=== PATIENT | female | born 1995 | race Hispanic/Latino ===

== ENCOUNTER 2022-01-28 12:18 | Outpatient (CLI) | payer OTHER | END 2022-01-28 12:19 | disposition home or self-care (01) | LOC: CSHULT 12:18 | PROVIDERS: ATTEND Family Medicine | DX: Z34.02 Encounter for supervision of normal first pregnancy, second trimester (principal); Z3A.21 21 weeks gestation of pregnancy | CPT/HCPCS: 76805 ==

== ENCOUNTER 2022-06-08 04:31 | Inpatient (IN) | payer OTHER ==
[2022-06-08 04:57] VITALS: BMI 35.2
[2022-06-08] MEDS ORDERED: Acetaminophen 500 MG TAB PO PRN (05:22)
[2022-06-08] MEDS ORDERED: Ibuprofen 800 MG TAB PO PRN (05:22)
[2022-06-08] MEDS ORDERED: Carboprost 250 MCG/ML AMP IM PRN (05:22)
[2022-06-08] MEDS ORDERED: Promethazine HCl 25 MG/ML VIAL IM PRN ×3 (05:22→21:19)
[2022-06-08] MEDS ORDERED: Lidocaine 1% (PF) 30 ML VIAL SC PRN (05:22)
[2022-06-08] MEDS ORDERED: Ondansetron PF 4 MG/2 ML Vial IVP PRN ×3 (05:22→21:19)
[2022-06-08] MEDS ORDERED: Butorphanol Tartrate 1 MG/ML VIAL SLOW IVP PRN (05:22)
[2022-06-08] MEDS ORDERED: Misoprostol 200 MCG TAB PR PRN (05:22)
[2022-06-08] MEDS ORDERED: hydrALAZINE 20 MG/ML VIAL SLOW IVP PRN (05:22)
[2022-06-08] MEDS ORDERED: Methylergonovine 0.2 MG/ML VIAL IM PRN (05:22)
[2022-06-08] MEDS ORDERED: Penicillin G Potassium 5 MILL.UNITS in Sodium Chloride 0.9% 100 ML IVPB SCH (05:30)
[2022-06-08] MEDS ORDERED: NS w/ Oxytocin 30 units 500 ML IV SCH ×2 (05:30)
[2022-06-08] MEDS: Lactated Ringer's 1,000 ML IV SCH ×3 (05:41→13:33)
[2022-06-08 05:59] LABS: Hemoglobin 11.5 g/dL (12.0-15.5); Mean Corpuscular HGB CONC 32.8 g/dL (32.0-36.0); Mean Corpuscular Hemoglobin 26.7 pg (27.0-33.0); Mean Corpuscular Volume 81.6 fl (81.6-98.3); Mean Platelet Volume 10.5 fl (7.4-10.4); Platelet Count 270 10x3/uL (150-450); RBC Distribution Width 13.8 % (11.5-14.5); White Blood Cell (WBC) Count 10.6 10x3/uL (3.5-10.5)
[2022-06-08 06:29] LABS: Syphilis Antibody Nonreactive (Nonreactive); Syphilis Antibody Index 0.05 S/CO (<1.00 Non-Reactive)
[2022-06-08 06:31] LABS: HBSAg Index 0.19 S/CO (0-0.99); Hep B Surf Ag Non-Reactive S/CO (NonReactive)
[2022-06-08] MEDS ORDERED: Fentanyl 2 mcg/Bup 0.1% Cadd 100 ML ONE (07:43)
[2022-06-08] MEDS: Fentanyl 2 mcg/Bupivacaine 0.1% Cassette 100 ML EPIDURAL SCH ×2 (08:30→16:20)
[2022-06-08] MEDS ORDERED: Naloxone HCl 0.4 mg/ml Vial IVP PRN ×4 (08:35→21:19)
[2022-06-08] MEDS ORDERED: Lactated Ringer's 500 ML IV PRN (08:35)
[2022-06-08] MEDS ORDERED: Acetaminophen 325 MG TAB PO PRN (08:35)
[2022-06-08] MEDS ORDERED: Moisturizing Cream (Eucerin) 113 GM JAR TOP PRN ×2 (08:35→21:19)
[2022-06-08] MEDS ORDERED: ePHEDrine Sulfate 50 MG/10 ML VIAL SLOW IVP PRN (08:35)
[2022-06-08] MEDS ORDERED: diphenhydrAMINE 50 MG/ML VIAL IVP PRN ×2 (08:35→21:19)
[2022-06-08] MEDS ORDERED: Communication Order-Pharmacy FS SCH ×2 (08:45→21:30)
[2022-06-08] MEDS: Penicillin G 2.5 MILL.units 2.5 MILL.UNITS in Premix Bag 1 BAG IVPB SCH ×3 (09:48→17:21)
[2022-06-08] MEDS ORDERED: Dexmedetomidine 200 MCG/2 ML VIAL ONE (11:56)
[2022-06-08] MEDS ORDERED: Lidocaine 2% MPF 10 ML AMP (For Epidural Use) ONE (14:29)
[2022-06-08] MEDS ORDERED: Bupivacaine/Epinephrine 0.25% 30 ML VIAL ONE (14:29)
[2022-06-08] MEDS ORDERED: Bupivacaine HCl 0.5%/Epinephrine 1:200,000/PF 30 ml Vial ONE (14:29)
[2022-06-08] MEDS ORDERED: Bupivacaine 0.5% 10 ML VIAL ONE (14:29)
[2022-06-08] MEDS ORDERED: CEFAZOLIN 2 GM VIAL ONE (19:55)
[2022-06-08] MEDS ORDERED: Azithromycin 500 MG VIAL ONE (19:55)
[2022-06-08] MEDS ORDERED: Morphine PF 10 MG/10 ML VIAL ONE (20:15)
[2022-06-08] MEDS ORDERED: Fentanyl 100 MCG/2 ML VIAL ONE (20:15)
[2022-06-08] MEDS ORDERED: Oxytocin 10 UNITS/ML VIAL ONE ×2 (20:25→21:06)
[2022-06-08] MEDS ORDERED: Ondansetron PF 4 MG/2 ML Vial ONE (20:25)
[2022-06-08] MEDS ORDERED: Dexamethasone 4 mg/ml Vial ONE (20:25)
[2022-06-08] MEDS ORDERED: Naloxone HCl 0.4 mg/ml Vial IV PRN (21:19)
[2022-06-08] MEDS ORDERED: Ketorolac Tromethamine 30 MG/ML VIAL IVP PRN (21:19)
[2022-06-08] MEDS ORDERED: Promethazine HCl 25 MG SUPP PR PRN (21:19)
[2022-06-08] MEDS ORDERED: Fentanyl 100 MCG/2 ML VIAL SLOW IVP PRN (21:20)
[2022-06-08] MEDS ORDERED: Meperidine HCl/PF 25 MG/ML VIAL SLOW IVP PRN (21:20)
[2022-06-08] MEDS ORDERED: HYDROmorphone 2 MG/ML VIAL SLOW IVP PRN (21:20)
[2022-06-08] MEDS ORDERED: Ondansetron HCl/PF 4 MG/2 ML Vial IVP PRN (21:20)
[2022-06-08] MEDS ORDERED: Ketorolac Tromethamine 30 MG/ML VIAL IVP SCH (21:30)
[2022-06-09] MEDS ORDERED: Ondansetron PF 4 MG/2 ML Vial IVP PRN (01:29)
[2022-06-09] MEDS ORDERED: hydrALAZINE 20 MG/ML VIAL SLOW IVP PRN (01:29)
[2022-06-09] MEDS ORDERED: Bisacodyl 10 MG SUPP PR PRN (01:29)
[2022-06-09] MEDS ORDERED: Promethazine HCl 25 MG/ML VIAL IM PRN (01:29)
[2022-06-09] MEDS ORDERED: diphenhydrAMINE 25 MG CAP PO PRN (01:29)
[2022-06-09] MEDS ORDERED: Boostrix 0.5 ML (Tdap) VIAL (>/=7 yrs of age) IM ONE (01:29)
[2022-06-09] MEDS ORDERED: Simethicone Chewable 80 MG TAB PO PRN (01:29)
[2022-06-09] MEDS ORDERED: Lanolin Ointment 7 GM TUBE TOP PRN (01:29)
[2022-06-09] MEDS: Ketorolac Tromethamine 30 MG/ML VIAL IVP SCH ×3 (03:01→14:33)
[2022-06-09 04:22] LABS: Hemoglobin 11.2 g/dL (12.0-15.5); Mean Corpuscular Volume 81.7 fl (81.6-98.3); Mean Platelet Volume 10.7 fl (7.4-10.4); Platelet Count 267 10x3/uL (150-450); Red Blood Cell (RBC) Count 4.15 10x6/uL (3.90-5.03); White Blood Cell (WBC) Count 21.8 10x3/uL (3.5-10.5)
[2022-06-09] MEDS: Docusate 100 MG CAP PO SCH ×2 (08:47→21:06)
[2022-06-09] MEDS: Prenatal Vitamin 1 TAB PO SCH (08:47)
[2022-06-09] MEDS: Ferrous Sulfate 325 MG TAB PO SCH ×2 (08:47→21:04)
[2022-06-09] MEDS: Lactated Ringer's 1,000 ML IV SCH (08:49)
[2022-06-09] MEDS ORDERED: Meperidine HCl/PF 25 MG/ML VIAL IM PRN (09:30)
[2022-06-09] MEDS: Penicillin G 2.5 MILL.units 2.5 MILL.UNITS in Premix Bag 1 BAG IVPB SCH (12:37)
[2022-06-09] MEDS: HYDROcodone/Acetaminophen 5/325 mg Tablet PO PRN ×3 (12:51→17:54)
[2022-06-09] MEDS: Ibuprofen 800 MG TAB PO SCH (21:06)
[2022-06-10] MEDS: HYDROcodone/Acetaminophen 5/325 mg Tablet PO PRN ×3 (02:31→21:32)
[2022-06-10] MEDS: Ibuprofen 800 MG TAB PO SCH ×3 (05:38→21:34)
[2022-06-10] MEDS: Ferrous Sulfate 325 MG TAB PO SCH ×2 (09:17→19:36)
[2022-06-10] MEDS: Prenatal Vitamin 1 TAB PO SCH (09:42)
[2022-06-10] MEDS: Docusate 100 MG CAP PO SCH ×2 (09:42→21:34)
[2022-06-11] MEDS: Ibuprofen 800 MG TAB PO SCH ×2 (05:04→13:42)
[2022-06-11] MEDS: HYDROcodone/Acetaminophen 5/325 mg Tablet PO PRN ×2 (05:05→11:37)
[2022-06-11] MEDS: Docusate 100 MG CAP PO SCH (09:10)
[2022-06-11] MEDS: Prenatal Vitamin 1 TAB PO SCH (09:10)
[2022-06-11] MEDS: Ferrous Sulfate 325 MG TAB PO SCH (10:20)
[2022-06-11 11:38] VITALS: BP 116/59; TEMP 98.2
== END 2022-06-11 15:15 | disposition home or self-care (01) | DRG 788 ==
LOC: CSHLD/OP 04:31 → CSHLD 06:54 → CSHPP 06-09 00:10
PROVIDERS: ADMIT Family Medicine; ATTEND Family Medicine
PROC: 10D00Z1 Extraction of Products of Conception, Low, Open Approach (ICD-10-PCS; principal; 2022-06-08)
DX: O42.02 Full-term premature rupture of membranes, onset of labor within 24 hours of rupture (principal); O62.1 Secondary uterine inertia; Z3A.39 39 weeks gestation of pregnancy; Z37.0 Single live birth; O99.824 Streptococcus B carrier state complicating childbirth; Z79.899 Other long term (current) drug therapy
CPT/HCPCS: 36415; 51702; 85027; 86780; 86850; 86900; 86901; 87340; 99285; J1100; J1885; J2210; J2274; J2405; J2540; J2590; J3010; J3490; J7120; U0003; U0005

== ENCOUNTER 2024-11-23 22:58 | Day surgery (SDC) | payer OTHER, SELFPAY ==
[2024-11-23 23:09] VITALS: BMI 34.9
[2024-11-24] MEDS: Acetaminophen 500 MG TAB PO PRN (00:55)
[2024-11-24 01:41] LABS: Protein, Urine Random Quant 285.0 mg/dL (1-14)
== END 2024-11-24 09:25 | disposition home or self-care (01) ==
LOC: CSHLD/OP 22:58
PROVIDERS: ATTEND Family Medicine
DX: O12.03 Gestational edema, third trimester (principal); O26.813 Pregnancy related exhaustion and fatigue, third trimester; Z3A.33 33 weeks gestation of pregnancy; Z87.59 Personal history of other complications of pregnancy, childbirth and the puerperium; Z79.899 Other long term (current) drug therapy
CPT/HCPCS: 82570; 84156; 99285

== ENCOUNTER 2024-11-27 16:24 | Day surgery (SDC) | payer OTHER ==
[2024-11-27 16:48] VITALS: BMI 34.9
[2024-11-27] MEDS ORDERED: hydrALAZINE 20 MG/ML VIAL SLOW IVP PRN (16:58)
[2024-11-27 17:33] LABS: Fetal Membranes Rupture No Membranes Rupture (No Rupture)
[2024-11-27 17:34] LABS: #Basophils 0.03 10x3/uL (0.0-0.2); #Eosinophils 0.04 10x3/uL (0.0-0.5); #Monocytes 0.52 10x3/uL (0.0-1.1); #Neutrophils 6.22 10x3/uL (1.5-8.4); %Basophils 0.4 % (0.0-2.0); %Eosinophils 0.5 % (0.0-6.0); %Lymphocytes 13.2 % (18.0-47.0); %Monocytes 6.6 % (0.0-10.0); %Neutrophils 78.8 % (40.0-75.0); Hematocrit 32.6 % (34.9-44.5); Hemoglobin 11.0 g/dL (12.0-15.5); Mean Corpuscular Hemoglobin 28.6 pg (27.0-33.0); Mean Corpuscular Volume 84.9 fL (81.6-98.3); Platelet Count 458 10x3/uL (150-450); Red Blood Cell (RBC) Count 3.84 10x6/uL (3.90-5.03); White Blood Cell (WBC) Count 7.89 10x3/uL (3.5-10.5)
[2024-11-27 17:46] LABS: Glucose, Urine (Dipstick) Normal (Negative); Leukocyte 25 (Negative); Protein, Urine (Dipstick) 500 mg/dl (Neg-Trace); Specific Gravity, Urine 1.020 (1.005-1.030)
[2024-11-27 17:54] LABS: ALT (SGPT) 8 U/L (Less than 34); AST (SGOT) 19 U/L (11-34); Albumin 2.1 g/dL (3.1-4.5); Alkaline Phosphatase 130 U/L (40-110); Anion Gap 11 mmol/L (10-20); BUN (Urea Nitrogen) 10 mg/dL (7.0-18.7); Bilirubin, Total 0.2 mg/dL (0.3-1.2); Calc. Creatinine Clearance 182 mL/min (70-130); Calcium 8.0 mg/dL (7.8-10.44); Carbon Dioxide 21 mmol/L (22-29); Chloride 110 mmol/L (98-107); Globulin 3.4 g/dL (2.4-3.5); Glucose 107 mg/dL (70-105); Potassium 4.0 mmol/L (3.5-5.1); Sodium 138 mmol/L (136-145)
[2024-11-27 17:57] LABS: CAUTI Indications for Culture Pregnancy; RBC/HPF 0-3 HPF (0-3)
[2024-11-27 17:58] LABS: Bacteria/HPF 1+ HPF (None Seen); Mucous/LPF Rare LPF (<2+)
[2024-11-27 17:59] LABS: Urine Culture Reflex Yes Yes
[2024-11-27] MEDS: metroNIDAZOLE 500 MG TAB PO SCH (19:37)
[2024-11-27 20:39] LABS: Protein, Urine Random Quant Greater than 2000 mg/dL (1-14)
== END 2024-11-27 21:25 | disposition home or self-care (01) ==
LOC: CSHLD/OP 16:24
PROVIDERS: ATTEND Family Medicine
DX: O23.593 Infection of other part of genital tract in pregnancy, third trimester (principal); B96.89 Other specified bacterial agents as the cause of diseases classified elsewhere; Z03.71 Encounter for suspected problem with amniotic cavity and membrane ruled out; O14.03 Mild to moderate pre-eclampsia, third trimester; Z3A.34 34 weeks gestation of pregnancy; Z79.899 Other long term (current) drug therapy
CPT/HCPCS: 36415; 80053; 81001; 82570; 84112; 84156; 85025; 87086; 87480; 87510; 87660; 99285

== ENCOUNTER 2024-11-30 02:24 | Inpatient (IN) | payer OTHER ==
[2024-11-30 02:41] VITALS: BMI 34.9
[2024-11-30] MEDS ORDERED: hydrALAZINE 20 MG/ML VIAL SLOW IVP PRN ×4 (02:50→15:33)
[2024-11-30] MEDS ORDERED: Diphenoxylate HCl/Atropine Tablet PO PRN ×2 (03:26)
[2024-11-30] MEDS ORDERED: Calcium Gluc 4.6 MEQ/10 ML (100 MG/ML) SLOW IVP PRN ×2 (03:26→15:33)
[2024-11-30] MEDS ORDERED: Methylergonovine 0.2 MG/ML VIAL IM PRN (03:26)
[2024-11-30] MEDS ORDERED: Tranexamic Acid 1,000 MG/10 ML VIAL IVP PRN (03:26)
[2024-11-30] MEDS ORDERED: Carboprost 250 MCG/ML AMP IM PRN (03:26)
[2024-11-30] MEDS ORDERED: Ondansetron PF 4 MG/2 ML Vial IVP PRN ×4 (03:26→15:33)
[2024-11-30] MEDS ORDERED: Oxytocin 30 units/NS 500 ML 500 ML IV SCH (03:30)
[2024-11-30 03:42] LABS: #Basophils Less than 0.03 10x3/uL (0.0-0.2); #Eosinophils 0.05 10x3/uL (0.0-0.5); #Monocytes 0.94 10x3/uL (0.0-1.1); #Neutrophils 5.67 10x3/uL (1.5-8.4); %Basophils 0.3 % (0.0-2.0); %Eosinophils 0.6 % (0.0-6.0); %Lymphocytes 16.1 % (18.0-47.0); %Monocytes 11.8 % (0.0-10.0); %Neutrophils 70.8 % (40.0-75.0); Hematocrit 33.9 % (34.9-44.5); Hemoglobin 11.0 g/dL (12.0-15.5); Mean Corpuscular Hemoglobin 27.3 pg (27.0-33.0); Mean Corpuscular Volume 84.1 fL (81.6-98.3); Platelet Count 234 10x3/uL (150-450); Red Blood Cell (RBC) Count 4.03 10x6/uL (3.90-5.03); White Blood Cell (WBC) Count 8.00 10x3/uL (3.5-10.5)
[2024-11-30 04:04] LABS: ALT (SGPT) 8 U/L (Less than 34); AST (SGOT) 16 U/L (11-34); Albumin 1.9 g/dL (3.1-4.5); Alkaline Phosphatase 150 U/L (40-110); Anion Gap 13 mmol/L (10-20); BUN (Urea Nitrogen) 13 mg/dL (7.0-18.7); Bilirubin, Total 0.2 mg/dL (0.3-1.2); Calc. Creatinine Clearance 156 mL/min (70-130); Calcium 7.5 mg/dL (7.8-10.44); Carbon Dioxide 20 mmol/L (22-29); Chloride 109 mmol/L (98-107); Globulin 3.1 g/dL (2.4-3.5); Glucose 110 mg/dL (70-105); Potassium 4.2 mmol/L (3.5-5.1); Sodium 138 mmol/L (136-145)
[2024-11-30 04:11] LABS: Troponin I Less than 0.010 ng/mL (< 0.028)
[2024-11-30 04:25] LABS: Syphilis Antibody Index 0.05 S/CO (<1.00 Non-Reactive)
[2024-11-30 04:26] LABS: Hep B Surf Ag - L&D Non-Reactive S/CO (NonReactive)
[2024-11-30 05:30] LABS: Protein, Urine Random Quant 1085.0 mg/dL (1-14)
[2024-11-30] MEDS: CEFAZOLIN 2 GM VIAL ONE ×2 (11:58→21:54)
[2024-11-30] MEDS ORDERED: Ketorolac Tromethamine 30 MG (1 mL) VIAL IVP PRN (13:31)
[2024-11-30] MEDS ORDERED: Meperidine HCl/PF 25 MG (1 mL) VIAL SLOW IVP PRN (13:31)
[2024-11-30] MEDS ORDERED: Communication Order-Pharmacy FS SCH (13:45)
[2024-11-30] MEDS: Ketorolac Tromethamine 30 MG (1 mL) VIAL IVP SCH (14:50)
[2024-11-30] MEDS: diphenhydrAMINE 50 MG/ML VIAL IVP PRN (15:30)
[2024-11-30] MEDS ORDERED: Lanolin Ointment 7 GM TUBE TOP PRN (15:33)
[2024-11-30] MEDS ORDERED: diphenhydrAMINE 25 MG CAP PO PRN (15:33)
[2024-11-30] MEDS ORDERED: Bisacodyl 10 MG SUPP PR PRN (15:33)
[2024-11-30] MEDS: Oxytocin 10 UNITS/ML VIAL ONE (21:54)
[2024-11-30] MEDS: Ondansetron PF 4 MG/2 ML Vial ONE (21:55)
[2024-11-30] MEDS: Dexamethasone 10 MG/ML VIAL ONE (21:55)
[2024-11-30] MEDS: PHENYLEPHRINE-NS 100 MCG/ML 10 ML SYRINGE ONE (21:55)
[2024-11-30] MEDS: Ferrous Sulfate 325 MG TAB PO SCH (21:58)
[2024-12-01] MEDS ORDERED: Meperidine HCl/PF 25 MG (1 mL) VIAL IM PRN (01:45)
[2024-12-01] MEDS: HYDROcodone/Acetaminophen 5/325 mg Tablet PO PRN ×2 (03:36→22:36)
[2024-12-01 06:11] LABS: Hematocrit 30.1 % (34.9-44.5); Hemoglobin 9.5 g/dL (12.0-15.5); Mean Corpuscular Hemoglobin 27.3 pg (27.0-33.0); Mean Corpuscular Volume 86.5 fL (81.6-98.3); Platelet Count 232 10x3/uL (150-450); Red Blood Cell (RBC) Count 3.48 10x6/uL (3.90-5.03); White Blood Cell (WBC) Count 15.83 10x3/uL (3.5-10.5)
[2024-12-01 07:24] LABS: ALT (SGPT) 8 U/L (Less than 34); AST (SGOT) 23 U/L (11-34); Albumin 1.6 g/dL (3.1-4.5); Alkaline Phosphatase 114 U/L (40-110); Anion Gap 14 mmol/L (10-20); BUN (Urea Nitrogen) 22 mg/dL (7.0-18.7); Bilirubin, Total 0.2 mg/dL (0.3-1.2); Calc. Creatinine Clearance 106 mL/min (70-130); Calcium 7.3 mg/dL (7.8-10.44); Carbon Dioxide 17 mmol/L (22-29); Chloride 106 mmol/L (98-107); Globulin 3.0 g/dL (2.4-3.5); Glucose 100 mg/dL (70-105); Potassium 5.2 mmol/L (3.5-5.1); Sodium 132 mmol/L (136-145)
[2024-12-01] MEDS: Simethicone Chewable 80 MG TAB PO PRN (08:46)
[2024-12-02 06:26] LABS: ALT (SGPT) 10 U/L (Less than 34); AST (SGOT) 24 U/L (11-34); Albumin 1.7 g/dL (3.1-4.5); Alkaline Phosphatase 103 U/L (40-110); Anion Gap 11 mmol/L (10-20); BUN (Urea Nitrogen) 15 mg/dL (7.0-18.7); Bilirubin, Total 0.1 mg/dL (0.3-1.2); Calc. Creatinine Clearance 165 mL/min (70-130); Calcium 7.8 mg/dL (7.8-10.44); Carbon Dioxide 23 mmol/L (22-29); Chloride 106 mmol/L (98-107); Globulin 3.1 g/dL (2.4-3.5); Glucose 85 mg/dL (70-105); Potassium 4.4 mmol/L (3.5-5.1); Sodium 136 mmol/L (136-145)
[2024-12-02] MEDS: Ibuprofen 800 MG TAB PO SCH (14:12)
[2024-12-03 07:53] VITALS: BP 120/68; TEMP 97.8
[2024-12-03] MEDS: Boostrix 0.5 ML (Tdap) VIAL (>/=7 yrs of age) IM ONE (08:39)
== END 2024-12-03 18:00 | disposition home or self-care (01) | DRG 788 ==
LOC: CSHLD/OP 02:24 → INTOOBSV 03:30 → OBSVTOIN 03:30 → CSHLD 03:30 → OBSVTOIN 03:31 → CSHLD 11:20 → CSHPED 17:15
PROVIDERS: ADMIT Family Medicine; ATTEND Family Medicine
PROC: 10D00Z1 Extraction of Products of Conception, Low, Open Approach (ICD-10-PCS; principal; 2024-11-30)
DX: O14.94 Unspecified pre-eclampsia, complicating childbirth (principal); O34.211 Maternal care for low transverse scar from previous cesarean delivery; Z3A.34 34 weeks gestation of pregnancy; Z37.0 Single live birth; Z79.899 Other long term (current) drug therapy
CPT/HCPCS: 36415; 51702; 71045; 80053; 82570; 84156; 84484; 85025; 85027; 86780; 86850; 86900; 86901; 87340; 96374; 99285; G0378; J1100; J1200; J1885; J2274; J2405; J2590; J7120

== ENCOUNTER 2025-04-26 18:13 | Emergency (ER) | payer OTHER ==
[2025-04-26] MEDS ORDERED: Ketorolac Tromethamine 30 MG (1 mL) VIAL ONE (19:22)
[2025-04-26 19:25] LABS: #Basophils 0.06 10x3/uL (0.0-0.2); #Eosinophils 0.06 10x3/uL (0.0-0.5); #Monocytes 0.70 10x3/uL (0.0-1.1); #Neutrophils 8.41 10x3/uL (1.5-8.4); %Basophils 0.5 % (0.0-2.0); %Eosinophils 0.5 % (0.0-6.0); %Lymphocytes 16.2 % (18.0-47.0); %Monocytes 6.3 % (0.0-10.0); %Neutrophils 76.0 % (40.0-75.0); Glucose, Urine (Dipstick) Normal (Negative); Hematocrit 37.7 % (34.9-44.5); Hemoglobin 12.7 g/dL (12.0-15.5); Leukocyte Negative (Negative); Mean Corpuscular Hemoglobin 28.0 pg (27.0-33.0); Mean Corpuscular Volume 83.0 fL (81.6-98.3); Platelet Count 365 10x3/uL (150-450); Protein, Urine (Dipstick) Negative (Neg-Trace); Red Blood Cell (RBC) Count 4.54 10x6/uL (3.90-5.03); Specific Gravity, Urine 1.015 (1.005-1.030); White Blood Cell (WBC) Count 11.07 10x3/uL (3.5-10.5)
[2025-04-26 19:32] LABS: BHCG - Serum Negative (NEGATIVE); Pregs Control Background? CLEAR/WHITE (CLR/WHITE); Pregs Control Bar Appear? YES (CONTROL BAR)
[2025-04-26 19:39] LABS: ALT (SGPT) 16 U/L (Less than 34); AST (SGOT) 27 U/L (11-34); Albumin 4.1 g/dL (3.1-4.5); Alkaline Phosphatase 99 U/L (40-110); Anion Gap 12 mmol/L (10-20); BUN (Urea Nitrogen) 11 mg/dL (7.0-18.7); Bilirubin, Total 0.2 mg/dL (0.3-1.2); Calc. Creatinine Clearance 0 mL/min (70-130); Calcium 8.8 mg/dL (7.8-10.44); Carbon Dioxide 25 mmol/L (22-29); Chloride 106 mmol/L (98-107); Globulin 3.1 g/dL (2.4-3.5); Glucose 94 mg/dL (70-105); Lipase 81 U/L (8-78); Potassium 3.8 mmol/L (3.5-5.1); Sodium 139 mmol/L (136-145)
[2025-04-26 19:52] LABS: Bacteria/HPF Rare-Few HPF (None Seen); CAUTI Indications for Culture Dysuria,urgency,freq; RBC/HPF None Seen HPF (0-3); Urine Culture Reflex No No; WBC/HPF 0-3 HPF (0-3)
== END 2025-04-26 23:33 | disposition home or self-care (01) ==
LOC: CSHERS 18:13
DX: R10.24 Suprapubic pain (principal)
CPT/HCPCS: 74177; 76856; 80053; 81001; 83690; 84703; 85025; 93976; 96374; J1885